=== PATIENT | male | born 1950 | race Caucasian/White ===

== ENCOUNTER 2024-08-30 12:25 | Emergency (ER) | payer MEDICARE, SELFPAY ==
[2024-08-30] VITALS (17 sets, daily range): BP systolic 114–152; BP diastolic 60–83; PULSE 81–98; RESP 13–24; TEMP 36.5; O2SAT 94–98; BMI 25.8
--- NOTE | 2024-08-30 12:25 | EKG_ITS ---
[facility] [address] [address] Test Date: 2024-08-30 Pat Name: Delmer Alberts Department: [facility] Room: Gender: Male Chef French: LANCE : 1950 Requested By: Order Number: [id number] Reading MD: Lanre Batista Measurements Intervals [place] Rate: 89 P: CT: QRS: 9 QRSD: 76 T: 28 QT: 350 QTc: 425 Interpretive Statements Atrial fibrillation Electronically Signed On 08-30-2024 13:30:34 PST by Lanre Batista
--- NOTE | 2024-08-30 12:25 | DI.RAD.S_ITS ---
PROCEDURE: XR CHEST 1V INDICATIONS: chest pain TECHNIQUE: One view of the chest was acquired. COMPARISON: None. FINDINGS: Surgical changes and devices: None. Lungs and pleura: Lungs are clear. No pleural effusions or pneumothorax. Mediastinum: Mediastinal contours appear normal. Heart size is normal. Bones and chest wall: No suspicious bony lesions. Overlying soft tissues appear unremarkable. IMPRESSION: No acute cardiopulmonary abnormality is seen. Dictated by: Ariel Soto M.D. on 08/30/2024 at 13:28 Approved by: Ariel Soto M.D. on 08/30/2024 at 13:29
[2024-08-30 13:00] LABS: Add Manual Diff / Slide Review NO; Basophils Absolute Auto 0 /uL (0-100); Basophils Percent Auto 0.6 % (0-2); Eosinophils Absolute Auto 0 /uL (0-450); Eosinophils Percent Auto 0.6 % (2-4); Hematocrit 41.4 % (41-53); Hemoglobin 13.8 g/dL (13.5-17.5); Lymphocytes Absolute Auto 1000 /uL (1100-4500); Lymphocytes Percent Auto 14.9 % (25-40); Mean Corpuscular HGB Conc 33.2 % (30-36); Mean Corpuscular Volume 90.2 fL (80-100); Monocytes Absolute Auto 600 /uL (0-900); Monocytes Percent Auto 8.7 % (3-14); Neutrophils Absolute Auto 4800 /uL (1500-7000); Neutrophils Percent Auto 75.2 % (50-75); Platelet Count 248 X10^3/uL (150-400); Red Blood Cell Count 4.59 X10^6/uL (4.5-5.9); Red Cell Distribution Width 13.8 % (11.6-14.8); White Blood Cell Count 6.4 X10^3/uL (4.5-11.0)
[2024-08-30 13:06] LABS: Prothrombin Time 11.5 SECONDS (9.4-12.5)
[2024-08-30 13:09] LABS: PTT Partial Thromboplastin Tim 29 SECONDS (25.1-36.5)
[2024-08-30 13:11] LABS: Alanine Aminotransferase 34 IU/L (<50); Albumin 4.6 g/dL (3.5-5.0); Albumin Globulin Ratio 1.4 (1.0-2.8); Alkaline Phosphatase 80 U/L (38-126); Aspartate Aminotransferase 30 IU/L (17-59); BUN Creatinine Ratio 21.2 (6-22); Bilirubin Total 1.2 mg/dL (0.2-1.3); Blood Urea Nitrogen 24 mg/dL (9-20); Calcium 9.3 mg/dL (8.4-10.2); Carbon Dioxide 20 mmol/L (22-32); Chloride 106 mmol/L (98-107); Creatine Kinase 66 U/L (55-170); Estimated Glomerular Filt Rate > 60 mL/min (>60); Globulin 3.2 g/dL (1.7-4.1); Glucose 122 mg/dL (80-110); HEMOLYSIS < 15 (0-50); Lipase 130 U/L (23-300); Potassium 4.4 mmol/L (3.4-5.1); Sodium 137 mmol/L (137-145); Total Protein 7.8 g/dL (6.3-8.2)
[2024-08-30 13:23] LABS: NT-proBNP (BNP-Adult 18+) 456 pg/mL (<125); Troponin I < 0.012 ng/mL (0.01-0.034)
--- NOTE | 2024-08-30 15:37 | EKG_ITS ---
[address] [address] Test Date: 2024-08-30 Pat Name: Delmer Alberts Department: Room: Gender: Male [employer] Consultant: SALVADOR : 1950 Requested By: Order Number: [id number] Reading MD: Brandon Mnceill MD Measurements Intervals [place] Rate: 84 P: CT: QRS: 13 QRSD: 74 T: 40 QT: 360 QTc: 425 Interpretive Statements Atrial fibrillation Electronically Signed On 08-30-2024 16:51:12 PST by Brandon Mcneill MD
[2024-08-30 16:15] LABS: Troponin I < 0.012 ng/mL (0.01-0.034)
--- NOTE | 2024-08-30 16:57 | ED_ITS ---
HPI - Chest Pain General Chief Complaint: Chest Pain Stated Complaint: New onset Afib Time Seen by Provider: 08/30/24 14:14 Source: patient and EMS Mode of arrival: EMS Limitations: no limitations Related Data Allergies Allergy/AdvReac Type Severity Reaction Status Date / Time No Known Drug Allergies Allergy Verified 08/30/24 12:34 Patient History Social History Smoking Status: Never smoker Smoking Status: Never smoker Exam Initial Vital Signs Initial Vital Signs: Vital Signs Temperature 97.7 F 08/30/24 12:28 Pulse Rate 98 H 08/30/24 12:28 Respiratory Rate 20 08/30/24 12:28 Blood Pressure 149/67 H 08/30/24 12:28 Pulse Oximetry 98 08/30/24 12:28 Oxygen Delivery Method Room Air 08/30/24 12:28 Course Orders Ordered: ED Orders 08/30/24 12:25 XR chest 1V Stat EKG-12 Lead Stat 08/30/24 12:46 Complete Blood Count AUTO DIFF Stat Comprehensive Metabolic Panel Stat Lipase Stat Magnesium Stat NT-proBNP (BNP-Adult 18+) Stat PTT Partial Thromboplastin Tres Stat Prothrombin Time INR Stat Troponin & CK Cardiac Panel Stat 08/30/24 15:37 EKG-12 Lead Stat 08/30/24 15:40 Trop I [Troponin I] Stat Discontinued Medications Aspirin (Aspirin 81 Mg Chew Tab) 324 mg PO NOW ONE Stop: 08/30/24 12:26 Last Admin: 08/30/24 12:39 Dose: Not Given Documented By: OMER Vital Signs Vital signs: Vital Signs - 8 hr 08/30/24 12:28 08/30/24 12:31 08/30/24 12:32 Temperature 97.7 F Pulse Rate 98 H 84 Respiratory Rate 20 13 Blood Pressure 149/67 H 143/70 H Pulse Oximetry 98 98 Oxygen Delivery Method Room Air 08/30/24 12:32 08/30/24 13:00 08/30/24 13:00 Temperature Pulse Rate 85 86 Respiratory Rate 16 18 Blood Pressure 130/60 Pulse Oximetry 98 94 Oxygen Delivery Method 08/30/24 13:30 08/30/24 13:30 08/30/24 14:00 Temperature Pulse Rate 85 86 Respiratory Rate 18 15 Blood Pressure 135/67 Pulse Oximetry 95 96 Oxygen Delivery Method 08/30/24 14:30 08/30/24 15:00 02/18/25 15:30 Temperature Pulse Rate 81 84 86 Respiratory Rate 23 18 Blood Pressure Pulse Oximetry 98 97 97 Oxygen Delivery Method 08/30/24 15:44 08/30/24 15:44 08/30/24 16:00 Temperature Pulse Rate 85 85 Respiratory Rate 24 20 Blood Pressure 152/83 H Pulse Oximetry 97 96 Oxygen Delivery Method 08/30/24 16:30 Temperature Pulse Rate 86 Respiratory Rate 15 Blood Pressure Pulse Oximetry 95 Oxygen Delivery Method MDM - Chest Pain Lab Data 08/30/24 12:46 08/30/24 12:46 Labs: Lab Results 08/30/24 08/30/24 Range/Units 12:46 15:40 WBC 6.4 (4.5-11.0) X10^3/uL RBC 4.59 (4.5-5.9) X10^6/uL Hgb 13.8 (13.5-17.5) g/dL Hct 41.4 (41-53) % MCV 90.2 (80-100) fL MCH 30.0 (26-34) PG MCHC 33.2 (30-36) % RDW 13.8 (11.6-14.8) % Plt Count 248 (150-400) X10^3/uL Neut % (Auto) 75.2 H (50-75) % Lymph % (Auto) 14.9 L (25-40) % [place] % (Auto) 8.7 (3-14) % Eos % (Auto) 0.6 L (2-4) % Baso % (Auto) 0.6 (0-2) % Neut # (Auto) 4800 (3784-6136) /uL Lymph # (Auto) 1000 L (3083-4317) /uL [place] # (Auto) 600 (0-900) /uL Eos # (Auto) 0 (0-450) /uL Baso # (Auto) 0 (0-100) /uL PT 11.5 (9.4-12.5) SECONDS INR 1.0 (0.9-1.3) APTT 29 (25.1-36.5) SECONDS Sodium 137 (137-145) mmol/L Potassium 4.4 (3.4-5.1) mmol/L Chloride 106 (98-107) mmol/L Carbon Dioxide 20 L (22-32) mmol/L BUN 24 H (9-20) mg/dL Creatinine 1.13 (0.66-1.25) mg/dL Estimated GFR > 60 (>60) mL/min BUN/Creatinine Ratio 21.2 (6-22) Glucose 122 H (80-110) mg/dL Calcium 9.3 (8.4-10.2) mg/dL Magnesium 2.0 (1.6-2.3) mg/dL Total Bilirubin 1.2 (0.2-1.3) mg/dL AST 30 (17-59) IU/L ALT 34 (<50) IU/L Alkaline Phosphatase 80 (38-126) U/L Total Creatine Kinase 66 (55-170) U/L Troponin I < 0.012 < 0.012 (0.01-0.034) ng/mL NT-Pro-B Natriuret Pep 456 H (<125) pg/mL Total Protein 7.8 (6.3-8.2) g/dL Albumin 4.6 (3.5-5.0) g/dL Globulin 3.2 (1.7-4.1) g/dL Albumin/Globulin Ratio 1.4 (1.0-2.8) Lipase 130 (23-300) U/L Discharge Plan Departure Referrals: Wanda Cruz ARNP [Primary Care Provider] -
--- NOTE | 2024-08-30 18:05 | ED_ITS ---
HPI - Chest Pain General Chief Complaint: Chest Pain Stated Complaint: New onset Afib Time Seen by Provider: 08/30/24 17:51 Source: patient and EMS Mode of arrival: EMS Limitations: no limitations History of Present Illness HPI narrative: 74-year-old male reports history of hypertension for which she takes enalapril, no history of known atrial fibrillation, no known CAD, had left anterior chest pain 0300 this morning for which he took baby aspirin, no associated nausea or vomiting or diaphoresis, took his morning enalapril blood pressure medication about 0730, chest pain resolved about noon, went to [facility], had EKG showing atrial fibrillation which is apparently new diagnosis, given additional aspirin, no further chest pain. Transferred by mold blower boat then ground transport here for further evaluation. No known coronary artery disease, had stress test years ago preoperative study before shoulder surgery, history of hypertension, no history of diabetes, no smoking, no cholesterol problems, no family history. Related Data Previous Rx's Medication Instructions Recorded apixaban 5 mg tablet (Eliquis) 5 mg PO BID #60 tabs 08/30/24 Allergies Allergy/AdvReac Type Severity Reaction Status Date / Time No Known Drug Allergies Allergy Verified 08/30/24 12:34 Patient History Social History Smoking Status: Never smoker Smoking Status: Never smoker Exam Narrative Exam Narrative: GENERAL: Well-developed patient, in mild distress. HEAD: Atraumatic. Normocephalic. EYES: Pupils equal round and reactive. Extraocular motions intact. No scleral icterus. No injection or drainage. ENT: Nose without bleeding, purulent drainage. Throat without erythema, tonsillar hypertrophy or exudate. Airway patent. NECK: Trachea midline. Non tender CARDIOVASCULAR: Irregularly irregular rhythm, not fast rate, no obvious murmurs, gallops, or rubs. RESPIRATORY: Clear to auscultation. Breath sounds equal bilaterally. No wheezes, rales, or rhonchi. GASTROINTESTINAL: Abdomen soft, non-tender, nondistended. EXTREMITIES: No edema or joint tenderness. BACK: Nontender without deformity or crepitance. No flank tenderness. NEURO: AOx3. Motor functions grossly nonfocal SKIN: No rash or erythema of visible areas Initial Vital Signs Initial Vital Signs: Vital Signs Temperature 97.7 F 08/30/24 12:28 Pulse Rate 98 H 08/30/24 12:28 Respiratory Rate 20 08/30/24 12:28 Blood Pressure 149/67 H 08/30/24 12:28 Pulse Oximetry 98 08/30/24 12:28 Oxygen Delivery Method Room Air 08/30/24 12:28 Scores CHADS-VASc Congestive heart failure: no Hypertension: yes Age 75 years or older: no Diabetes mellitus: no Stroke, TIA, or TE: no Vascular disease: no Age 65 to 74 years: yes Sex category (female): Male CHADS-VASc Score: 2 HEART Score Heart Score history: Slightly Suspicious Heart Score EKG: Normal Heart Score Age: > or = 65 years old Heart Score risk factors: 1-2 risk factors Heart Score troponin: < or = to normal limit Heart Score Total: 3 Course Orders Ordered: Discontinued Medications Aspirin (Aspirin 81 Mg Chew Tab) 324 mg PO NOW ONE Stop: 08/30/24 12:26 Last Admin: 08/30/24 12:39 Dose: Not Given Documented By: OMER Vital Signs Vital signs: Vital Signs - 8 hr 08/30/24 12:28 08/30/24 12:31 08/30/24 12:32 Temperature 97.7 F Pulse Rate 98 H 84 Respiratory Rate 20 13 Blood Pressure 149/67 H 143/70 H Pulse Oximetry 98 98 Oxygen Delivery Method Room Air 08/30/24 12:32 08/30/24 13:00 08/30/24 13:00 Temperature Pulse Rate 85 86 Respiratory Rate 16 18 Blood Pressure 130/60 Pulse Oximetry 98 94 Oxygen Delivery Method 08/30/24 13:30 08/30/24 13:30 08/30/24 14:00 Temperature Pulse Rate 85 86 Respiratory Rate 18 15 Blood Pressure 135/67 Pulse Oximetry 95 96 Oxygen Delivery Method 08/30/24 14:30 08/30/24 15:00 08/30/24 15:30 Temperature Pulse Rate 81 84 86 Respiratory Rate 23 18 Blood Pressure Pulse Oximetry 98 97 97 Oxygen Delivery Method 08/30/24 15:44 08/30/24 15:44 08/30/24 16:00 Temperature Pulse Rate 85 85 Respiratory Rate 24 20 Blood Pressure 152/83 H Pulse Oximetry 97 96 Oxygen Delivery Method 08/30/24 16:30 08/30/24 16:46 08/30/24 16:46 Temperature Pulse Rate 86 83 Respiratory Rate 15 20 Blood Pressure 133/65 Pulse Oximetry 95 95 Oxygen Delivery Method 08/30/24 17:00 08/30/24 17:00 08/30/24 17:30 Temperature Pulse Rate 85 Respiratory Rate 17 Blood Pressure 122/68 114/62 Pulse Oximetry 94 Oxygen Delivery Method 08/30/24 17:30 08/30/24 18:00 08/30/24 18:00 Temperature Pulse Rate 85 88 Respiratory Rate 13 14 Blood Pressure 114/60 Pulse Oximetry 95 95 Oxygen Delivery Method 08/30/24 18:30 08/30/24 18:30 Temperature Pulse Rate 84 Respiratory Rate 18 Blood Pressure 146/68 H Pulse Oximetry 97 Oxygen Delivery Method MDM - Chest Pain Lab Data Attestation: I reviewed the patient's lab results. Lab results narrative: White blood cell count 6400, hemoglobin 13.8, platelets adequate. Basic metabolic panel normal. Liver functions and lipase normal. Troponin negative/unmeasurable x2 sets. 08/30/24 12:46 08/30/24 12:46 Labs: Lab Results 08/30/24 08/30/24 Range/Units 12:46 15:40 WBC 6.4 (4.5-11.0) X10^3/uL RBC 4.59 (4.5-5.9) X10^6/uL Hgb 13.8 (13.5-17.5) g/dL Hct 41.4 (41-53) % MCV 90.2 (80-100) fL MCH 30.0 (26-34) PG MCHC 33.2 (30-36) % RDW 13.8 (11.6-14.8) % Plt Count 248 (150-400) X10^3/uL Neut % (Auto) 75.2 H (50-75) % Lymph % (Auto) 14.9 L (25-40) % [place] % (Auto) 8.7 (3-14) % Eos % (Auto) 0.6 L (2-4) % Baso % (Auto) 0.6 (0-2) % Neut # (Auto) 4800 (8992-7157) /uL Lymph # (Auto) 1000 L (9790-2498) /uL [place] # (Auto) 600 (0-900) /uL Eos # (Auto) 0 (0-450) /uL Baso # (Auto) 0 (0-100) /uL PT 11.5 (9.4-12.5) SECONDS INR 1.0 (0.9-1.3) APTT 29 (25.1-36.5) SECONDS Sodium 137 (137-145) mmol/L Potassium 4.4 (3.4-5.1) mmol/L Chloride 106 (98-107) mmol/L Carbon Dioxide 20 L (22-32) mmol/L BUN 24 H (9-20) mg/dL Creatinine 1.13 (0.66-1.25) mg/dL Estimated GFR > 60 (>60) mL/min BUN/Creatinine Ratio 21.2 (6-22) Glucose 122 H (80-110) mg/dL Calcium 9.3 (8.4-10.2) mg/dL Magnesium 2.0 (1.6-2.3) mg/dL Total Bilirubin 1.2 (0.2-1.3) mg/dL AST 30 (17-59) IU/L ALT 34 (<50) IU/L Alkaline Phosphatase 80 (38-126) U/L Total Creatine Kinase 66 (55-170) U/L Troponin I < 0.012 < 0.012 (0.01-0.034) ng/mL NT-Pro-B Natriuret Pep 456 H (<125) pg/mL Total Protein 7.8 (6.3-8.2) g/dL Albumin 4.6 (3.5-5.0) g/dL Globulin 3.2 (1.7-4.1) g/dL Albumin/Globulin Ratio 1.4 (1.0-2.8) Lipase 130 (23-300) U/L Imaging Data Chest x-ray: Radiologist's Impression: [address] [address] XRay Report Signed Patient: Delmer Alberts MR#: [id number] : 1950 Acct:[id number] Age/Sex: 74 / M Date of Service: 08/30/24 Loc: ED Accession Number: [id number] Procedure: XR chest 1V Ordering Provider: Dena Rodríguez D.O. PROCEDURE: XR CHEST 1V INDICATIONS: chest pain TECHNIQUE: One view of the chest was acquired. COMPARISON: None. FINDINGS: Surgical changes and devices: None. Lungs and pleura: Lungs are clear. No pleural effusions or pneumothorax. Mediastinum: Mediastinal contours appear normal. Heart size is normal. Bones and chest wall: No suspicious bony lesions. Overlying soft tissues appear unremarkable. IMPRESSION: No acute cardiopulmonary abnormality is seen. Dictated by: Ariel Soto M.D. on 08/30/2024 at 13:28 Approved by: Ariel Soto M.D. on 08/30/2024 at 13:29 ECG Data Attestation: I personally reviewed and interpreted this ECG as follows: Interpretation: 1232, Atrial fibrillation with rate 89, no obvious ST segment elevation or depression changes. QRS 76, QTC 425. 1548, atrial fibrillation with rate 84, no obvious ST segment elevation or depression changes. QRS 74, QTC 425. MDM Narrative Medical decision making narrative: 74-year-old male with resolved chest pain from 0897-5046, received aspirin, went to [facility] with new diagnosis atrial fibrillation, arrived by mold blower boat then ground transport for further evaluation, no further chest pain, new diagnosis of atrial fibrillation, no known CAD, recalls remote stress testing before elective shoulder surgery years ago, has history of hypertension, no diabetes or hypercholesterolemia or family history or smoking. Screening EKG here shows atrial fibrillation with rate 80s, no obvious ischemic changes. Troponin x2 sets have been negative. Electrolytes unremarkable. Currently asymptomatic. [id number] Score = 2, 2.2% stroke risk per year (MedCalc), positive score 1 for hypertension and 1 for age We will consult Cardiology for disposition plan, page out to Dr. Ornelas on- call [phone], case discussed with cardiology Dr. Ornelas on-call, advises starting Eliquis 5 mg twice daily, demographic and phone number relayed to her, she will be contacted by the office tomorrow, to see her in clinic on Thursday, with anticipated exercise treadmill testing and echocardiogram studies. Prescription for Eliquis sent to their [facility] pharmacy. They might follow up in [place] with their primary care provider and a local machined parts metal sprayer there. Contact information given for office of Dr. Ornelas as above, advised to contact her office if they are going to follow up elsewhere or with their office Discharge Plan Departure Patient Disposition: Home Clinical Impression: Atrial fibrillation, Chest pain Activity Restrictions/Additional Instructions: Mr. Alberts, alma delia had resolved chest pain from 0300 through 12 noon today, EKG did not show any ischemic changes but did show atrial fibrillation which would be a new diagnosis for you, rate controlled, no fast rate at this time. Blood testing did not show evidence for heart attack today. Case was discussed with local on-call machined parts metal sprayer Dr. Ornelas, who would like you to start Eliquis blood thinner 5 mg twice daily to help prevent stroke. She can see you on Thursday next week, and thinks that you should be having an echocardiogram of your heart, and also scheduled for stress testing. Her contact information is provided. Though it sounds like he might be making cardiology follow up arrangements through your home [facility]. Eliquis prescription sent to your pharmacy in [place]. Follow up with Cardiology with Dr. Ornelas or your own cardiologists in [place] in close follow up for further testing and evaluation. Return earlier to this/nearest emergency department for any change worsening symptoms or any concerns prior. If you for allowing our team to evaluate you today. Prescriptions: New Eliquis 5 mg tablet 5 mg PO BID Qty: 60 0RF Referrals: Wanda Cruz ARNP [Primary Care Provider] - Rebekah Ornelas MD [Physician] - Stand Alone Forms: Patient Portal/API/Survey
== END 2024-08-30 18:57 | disposition home or self-care (01) ==
PROVIDERS: Emergency Medicine; Emergency Provider Emergency Medicine; PCP Nurse Practitioner Family
DX: I48.91 Unspecified atrial fibrillation (principal); R07.9 Chest pain, unspecified; I10 Essential (primary) hypertension; Z79.01 Long term (current) use of anticoagulants
CPT/HCPCS: 71045; 80053; 82550; 83690; 83735; 83880; 84484; 85025; 85610; 85730; 93005; 93010; 99283; 99284